=== PATIENT | female | born 1980 | race Caucasian/White ===

== ENCOUNTER → 2024-04-16 15:51 | Outpatient (REF) | payer BC, SELFPAY | LOC: HWWDC 15:51 | PROVIDERS: ATTENDING PHYSICIAN Registered Nurse; FAMILY PHYSICIAN Family Medicine | DX: Z12.31 Encounter for screening mammogram for malignant neoplasm of breast (principal) | CPT/HCPCS: 77063; 77067 ==

== ENCOUNTER → 2025-05-30 15:25 | Outpatient (REF) | payer BC, SELFPAY | LOC: HWWDC 15:25 | PROVIDERS: ATTENDING PHYSICIAN Registered Nurse; FAMILY PHYSICIAN Family Medicine | DX: Z12.31 Encounter for screening mammogram for malignant neoplasm of breast (principal) | CPT/HCPCS: 77063; 77067 ==